=== PATIENT | female | born 1955 | race Caucasian/White ===

== ENCOUNTER → 2019-10-31 09:00 | Outpatient (BNVA) | payer MEDICARE, BC, SELFPAY | PROVIDERS: Family Provider Family Medicine; PCP Family Medicine; Visit Provider Family Medicine | DX: F41.9 Anxiety disorder, unspecified (principal); R30.0 Dysuria; I10 Essential (primary) hypertension; H69.83 Other specified disorders of Eustachian tube, bilateral | CPT/HCPCS: 80053; 80061; 81003; 85025; 87086 ==

== ENCOUNTER → 2019-12-17 13:47 | Outpatient (BNVA) | payer BC, SELFPAY | PROVIDERS: Family Provider Family Medicine; PCP Family Medicine; Visit Provider Family Medicine | DX: E78.5 Hyperlipidemia, unspecified (principal) | CPT/HCPCS: 80053 ==

== ENCOUNTER → 2020-02-28 08:39 | Outpatient (BNVA) | payer BC, SELFPAY | PROVIDERS: Family Provider Family Medicine; PCP Family Medicine; Visit Provider Family Medicine | DX: E78.5 Hyperlipidemia, unspecified (principal); R06.02 Shortness of breath; F41.9 Anxiety disorder, unspecified | CPT/HCPCS: 80053; 80061 ==

== ENCOUNTER → 2020-05-08 14:10 | Outpatient (BNVA) | payer BC, SELFPAY | PROVIDERS: Family Provider Family Medicine; PCP Family Medicine; Visit Provider Family Medicine | DX: Z01.419 Encounter for gynecological examination (general) (routine) without abnormal findings | CPT/HCPCS: 88175 ==

== ENCOUNTER 2020-06-20 09:31 | Outpatient (CLI) | payer BC, SELFPAY ==
--- NOTE | 2020-06-20 09:30 | MM_ITS ---
WS: [id number] BILATERAL SCREENING DIGITAL MAMMOGRAM WITH CAD HISTORY: screening mammogram COMPARISON: 03/23/2018 and 03/13/2015 Bilateral CC and MLO views submitted. Computer aided detection analyzed. Breast composition: There are scattered areas of fibroglandular density. No suspicious masses, microc alcifications or architectural distortion. Benign calcifications in the central RIGHT breast at 12:00 . MM/[place] [id number] IMPRESSION: BI-RADS: 2-Benign FOLLOW UP: 1 Year Follow-up
== END 2020-06-20 09:32 | disposition home or self-care (01) ==
LOC: RADSHAW 09:34
PROVIDERS: PCP Family Medicine; Visit Provider Family Medicine
DX: Z12.31 Encounter for screening mammogram for malignant neoplasm of breast (principal)
CPT/HCPCS: 77067

== ENCOUNTER → 2020-10-13 14:02 | Outpatient (BNVA) | payer MEDICARE, SELFPAY | PROVIDERS: PCP Family Medicine; Visit Provider Family Medicine | DX: I10 Essential (primary) hypertension (principal); E78.5 Hyperlipidemia, unspecified; F41.9 Anxiety disorder, unspecified | CPT/HCPCS: 80053; 80061; 82043; 85025 ==

== ENCOUNTER 2021-01-07 15:23 | Outpatient (CLI) | payer MEDICARE, SELFPAY ==
--- NOTE | 2021-01-07 15:32 | XR_ITS ---
WS: [id number] SHOULDER RIGHT TECHNIQUE: 3 views of the right shoulder CLINICAL INFORMATION: right shoulder pain COMPARISON: None. FINDINGS: Mild degenerative arthritis AC joint and glenohumeral joint. Narrowing of the subacromial space. Rota tor cuff arthropathy. No acute fractures. Partially visualized right lung is normal. XR/XR shoulder RT min 2V* [id number] IMPRESSION: Rotator cuff arthropathy with loss of the subacromial space. No acute fractures .
== END 2021-01-07 15:24 | disposition home or self-care (01) ==
PROVIDERS: PCP Family Medicine; Visit Provider Family Medicine
DX: M25.511 Pain in right shoulder (principal); M12.811 Other specific arthropathies, not elsewhere classified, right shoulder
CPT/HCPCS: 73030

== ENCOUNTER 2021-01-14 08:57 | Outpatient (RCR) | payer MEDICARE, SELFPAY | END 2021-02-06 23:59 | disposition home or self-care (01) | LOC: SPT 08:57 | PROVIDERS: PCP Family Medicine; Referring Provider Family Medicine; Visit Provider Family Medicine | DX: M25.511 Pain in right shoulder (principal); G89.29 Other chronic pain | CPT/HCPCS: 97110; 97161 ==

== ENCOUNTER 2021-02-07 06:00 | Outpatient (RCR) | payer MEDICARE, SELFPAY | END 2021-03-09 23:59 | disposition home or self-care (01) | LOC: SPT 06:00 | PROVIDERS: PCP Family Medicine; Referring Provider Family Medicine; Visit Provider Family Medicine | DX: M25.511 Pain in right shoulder (principal); G89.29 Other chronic pain | CPT/HCPCS: 97110 ==

== ENCOUNTER → 2021-04-14 11:55 | Outpatient (BNVA) | payer MEDICARE, SELFPAY | PROVIDERS: PCP Family Medicine; Visit Provider Family Medicine | DX: I10 Essential (primary) hypertension (principal); F41.9 Anxiety disorder, unspecified; M16.11 Unilateral primary osteoarthritis, right hip; E78.5 Hyperlipidemia, unspecified | CPT/HCPCS: 80053 ==

== ENCOUNTER → 2021-10-13 11:40 | Outpatient (BNVA) | payer MEDICARE, SELFPAY | PROVIDERS: PCP Family Medicine; Visit Provider Family Medicine | DX: I10 Essential (primary) hypertension (principal); E78.5 Hyperlipidemia, unspecified | CPT/HCPCS: 80053; 80061; 82043; 85025 ==

== ENCOUNTER 2021-12-23 08:16 | Outpatient (CLI) | payer MEDICARE, SELFPAY ==
[2021-12-23 08:35] VITALS: BMI 31.6
--- NOTE | 2021-12-23 08:48 | ECG_ITS ---
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 Interpretive Statements NAME OF STUDY: LEXISCAN SESTAMIBI STRESS TEST INDICATION: Dyspnea, PROCEDURE: At the baseline, the EKG revealed normal sinus rhythm with a normal ST Ts. The baseline blood pressure was 148/83 mm Hg with a heart rate of 82 beats/min. Lexiscan was infused over a period of 20 seconds. A total of 0.4 milligrams of Lexiscan was infused. The stress phase was continued for a total of 5 minutes. Heart rate at the end of the stress phase was 101 with a blood pressure 152/82. The EKG at the peak infusion revealed no significant changes. Sestamibi was injected 20 seconds after the Lexiscan infusion. Blood pressure at the end of the recovery phase was 147/81 with a heart rate of 102 per minute. CONCLUSION: 1. No significant EKG changes with the LexiScan infusion 2. No LexiScan induced chest pain or cardiac arrhythmia 3. Normal blood pressure and heart rate response 4. Sestamibi/sestamibi perfusion scan pending; see separate report. Electronically Signed On 12-26-2021 13:21:57 CDT by Megan Duarte M.D. [id number]
--- NOTE | 2021-12-23 08:48 | NMCV_ITS ---
NM keith perf SPECT r/s* [id number] Niya Oviedo Age: 66 Gender: F : 1955 Exam Date: 12/23/2021 08:48 Ordering Phys: Lorena Giron DO Technologist: ANNETTE Rosario Exam Location: [facility] Indications: DYSPNEA STRESS TEST Please see separate stress test report in [facility] for full findings IMAGE PROTOCOL Rest/Stress 1 Lexiscan Day Radiopharmaceutical Dose (mCi) Administration Site Administered by Rest: Tc-99m 10.7 IV ANNETTE Roa Sestamibi Stress:Tc-99m 32.9 IV ANNETTE Roa Sestamibi Rest: 23-Dec-2021 60 Discovery 630 Stress: 23-Dec-2021 30 Discovery 630 0.4mg Lexiscan. Images obtained in supine and prone position. SPECT RESULTS Technical Quality: Excellent Raw Data Analysis: Normal Image Corrections: No attenuation or motion correction applied Summed Stress Score: 9 Summed Rest Score: 5 Summed Difference Score: 4 PERFUSION FINDINGS Small to moderate area of moderate to severely decreased tracer uptake in the mid inferolateral, apical lateral, apical anterior, and LV apex. There was a reversibility in these regions. FUNCTIONAL RESULTS (calculated via Gated SPECT) Stress Image LV EF (%): 78 Stress EDV (mL):80 TID: 1.09 Stress ESV (mL):18 FUNCTIONAL FINDINGS: Segmental wall motion analysis revealing no gross wall motion normalities. IMPRESSIONS 1. Myocardial perfusion imaging revealing small to moderate area of decreased tracer uptake in the inferolateral and apical regions with significant reversibility, suggesting ischemia predominantly in the region of the left circumflex artery with some involvement of the distal RCA and LAD. 2. Normal LV ejection fraction 78%. 3. LV wall motion analysis revealing no gross wall motion abnormalities. 4. Normal LV volume. No similar previous studies are available for comparison Dr Megan Duarte MD [facility] (Electronically Signed) Final Date: 23 December 2021 17:27 S
[2021-12-23] MEDS: regadenoson 0.4 Mg/5 ml Syringe IVP (10:46)
[2021-12-23 10:48] VITALS: BP 147/81; PULSE 97
== END 2021-12-23 08:17 | disposition home or self-care (01) ==
LOC: CDL 08:16
PROVIDERS: PCP Family Medicine; Visit Provider Family Medicine
DX: R06.00 Dyspnea, unspecified (principal)
CPT/HCPCS: 78452; 93017; A9500; J2785

== ENCOUNTER → 2022-02-24 09:37 | Outpatient (BNVA) | payer MEDICARE, SELFPAY | PROVIDERS: PCP Family Medicine; Visit Provider Internal Medicine Cardiovascular Disease | DX: R06.09 Other forms of dyspnea (principal); R94.39 Abnormal result of other cardiovascular function study; I10 Essential (primary) hypertension; E78.5 Hyperlipidemia, unspecified; M16.11 Unilateral primary osteoarthritis, right hip; Z87.891 Personal history of nicotine dependence | CPT/HCPCS: 99205 ==

== ENCOUNTER 2022-03-26 06:51 | Outpatient (CLI) | payer MEDICARE, SELFPAY ==
[2022-03-26 07:36] LABS: Basophils # 0.1 10^3/uL (0.0-0.1); Basophils % 0.9 %; Eosinophils # 0.1 10^3/uL (0.0-0.8); Eosinophils % 0.9 %; Hematocrit 25.4 % (37.0-47.0); Hemoglobin 7.2 g/dL (11.5-15.3); Lymphocytes # 0.9 10^3/uL (0.8-4.8); Lymphocytes % 15.6 %; Mean Corpuscular HGB Conc 28.3 g/dL (30.0-36.0); Mean Corpuscular Hemoglobin 19.5 pg (28.0-34.0); Mean Corpuscular Volume 68.8 fl (81-99); Mean Platelet Volume 9.7 fL (7.4-10.4); Monocytes # 0.8 10^3/uL (0.2-0.9); Monocytes % 14.2 %; Neutrophils % 67.7 %; Nucleated Red Blood Cells % 0.5 %; Platelet Count 433 10^3/cmm (130-400); Red Blood Count 3.69 10^6/uL (4.1-5.3); Red Cell Distribution Width 18.3 % (12.1-15.1); White Blood Count 5.8 10^3/uL (4.0-10.0)
[2022-03-26 07:47] LABS: INR 1.11 (0.83-1.21); Prothrombin Time (Patient) 14.7 Seconds (12.0-15.1)
[2022-03-26 07:55] LABS: Anion Gap 15.8 (5-19); Blood Urea Nitrogen 7 mg/dL (8-23); Calcium 8.6 mg/dL (8.5-10.5); Carbon Dioxide 24 mmol/L (22-29); Chloride 100 mmol/L (98-107); Glomerular Filtration Rate 83.5 mL/min (90-130); Glucose 112 mg/dL (65-115); Osmolality Calculated 281 mOsm/kg (285-295); Potassium 3.8 mmol/L (3.5-5.1); Sodium 136 mmol/L (136-145)
== END 2022-03-26 06:52 | disposition home or self-care (01) ==
LOC: LAB 06:52
PROVIDERS: PCP Family Medicine; Visit Provider Internal Medicine Cardiovascular Disease
DX: E78.5 Hyperlipidemia, unspecified (principal); I10 Essential (primary) hypertension; R06.02 Shortness of breath
CPT/HCPCS: 36415; 80048; 85025; 85610

== ENCOUNTER → 2022-04-07 14:54 | Outpatient (BNVA) | payer MEDICARE, SELFPAY | PROVIDERS: PCP Family Medicine; Referring Provider Family Medicine; Visit Provider Surgery | DX: D64.9 Anemia, unspecified (principal) | CPT/HCPCS: 99203 ==

== ENCOUNTER 2022-04-14 07:03 | Day surgery (SDC) | payer MEDICARE, SELFPAY ==
[2022-04-14 07:36] VITALS: BP 162/102; PULSE 103; RESP 18; TEMP 36.3; O2SAT 99
[2022-04-14] MEDS: sodium chloride 0.9% 1,000 ML 30 ML IV (07:36)
--- NOTE | 2022-04-14 07:51 | W.PM.OPSUD ---
Surgery/Procedure H&P Update DATE OF PROCEDURE: April 14, 2022 DATE H&P PERFORMED: 04/07/22 CHANGES TO PREVIOUS DOCUMENTATION: none PLANNED PROCEDURE: Operation Date: 04/14/22 08:45 Proposed Procedures p EGD and colonoscopy 47544,19898,D64.9,Z12.11(Not Applicable) - DO etta Hendricks Colonoscopy(Not Applicable) - Joseph Ross DO
--- NOTE | 2022-04-14 08:16 | ANES.PREANE2 ---
Pre-Anesthetic Assessment Height/Weight: Height 1.65 m Weight 82.554 kg Temp Pulse Resp BP Pulse Ox 97.3 F L 103 H 18 162/102 99 04/14/22 07:36 04/14/22 07:36 04/14/22 07:36 04/14/22 07:36 04/14/22 07:36 Operation Date: 04/14/22 08:45 Proposed Procedures p EGD and colonoscopy 88327,07002,D64.9,Z12.11(Not Applicable) - DO etta Hendricks Colonoscopy(Not Applicable) - Joseph Ross DO Familial anesthetic complications: none Last intake: Intake Last Liquid Date 04/13/22 Last Liquid Time 23:30 Last Solid Date 04/13/22 Last Solid Time 11:00 Social No alcohol and No tobacco Exam alert, oriented x 3, clear to auscultation bilaterally and regular rate & rhythm Airway Mallampati: Class II Dentition: false Pulmonary Exertional Dyspnea CV/HEM Anemia and Hypertension Anesthetic Plan ASA status: 3 Anesthesia: MAC Risk of > 500 ml blood loss (7ml/kg in children): No Medications/Allergies Home Medications Medication Instructions Recorded Confirmed Last Taken Type aspirin 81 mg tablet,delayed 81 mg PO QDAY 10/31/19 04/14/22 04/13/22 History release sertraline 50 mg tablet (Zoloft) 50 mg PO QDAY #90 tab 10/13/21 04/14/22 04/13/22 Rx isosorbide mononitrate 30 mg 15 mg PO QAM 90 Days #45 tab 11/23/21 04/14/22 04/13/22 Rx tablet,extended release 24 hr atorvastatin 10 mg tablet 10 mg PO DAILY #90 tab 03/03/22 04/14/22 04/13/22 Rx propranolol 80 mg capsule,24 80 mg PO QDAY #90 cap 03/11/22 04/14/22 04/14/22 Rx hr,extended release Allergies Allergy/AdvReac Type Severity Reaction Status Date / Time No Known Allergies Allergy Verified 04/14/22 07:30 Current Medications Generic Name Dose Route Start Last Admin Trade Name Freq PRN Reason Stop Dose Admin Sodium Chloride 1,000 mls @ 30 mls/hr 04/14/22 07:30 04/14/22 07:36 Sodium Chloride 0.9% IV 04/15/22 07:29 30 mls/hr .Q24H [place] Administration PFSH Anesthesia Medical History Anxiety Arrhythmia Benign essential HTN Dyslipidemia Ischemia Surgical History H/O tubal ligation History of colonoscopy 2008 History of tonsillectomy Family History Mother Cardiomegaly Grandfather Myocardial infarction Family/Other Myocardial infarction Diabetes Other CAD (coronary artery disease) Hypertension Social History Smoking and tobacco status: former smoker Alcohol intake: never Data Anesthesia Cardiac Studies: Sestamibi Stress Test (Cardiology) 12/23/21
[2022-04-14 09:02] VITALS: BP 119/68; PULSE 89; RESP 16; TEMP 36.2; O2SAT 97
--- NOTE | 2022-04-14 09:06 | ANE.PACU2 ---
Inpatient post-anesthesia follow up: Airway intact: Yes Vital signs: Temperature 97.1 F Pulse Rate 89 Respiratory Rate 16 Blood Pressure 119/68 Pulse Oximetry 97 Oxygen Delivery Me thod Room Air Oxygen Flow Rate Fraction of Inspir ed Oxygen Hydration adequate: Yes Nausea and vomiting: No Pain level: 1 Mental status: Baseline
[2022-04-14 09:20] VITALS: BP 129/86; PULSE 80; RESP 18; O2SAT 97
== END 2022-04-14 09:33 | disposition home or self-care (01) ==
PROVIDERS: PCP Family Medicine; Visit Provider Surgery
PROC: 0DJ08ZZ Inspection of Upper Intestinal Tract, Via Natural or Artificial Opening Endoscopic (ICD-10-PCS; CPT 43235; principal; 2022-04-14 08:45)
PROC: 0DJD8ZZ Inspection of Lower Intestinal Tract, Via Natural or Artificial Opening Endoscopic (ICD-10-PCS; CPT 45378; 2022-04-14 08:45)
DX: Z12.11 Encounter for screening for malignant neoplasm of colon (principal); D64.9 Anemia, unspecified; K29.50 Unspecified chronic gastritis without bleeding; B96.81 Helicobacter pylori [H. pylori] as the cause of diseases classified elsewhere; I10 Essential (primary) hypertension; Z79.82 Long term (current) use of aspirin; F41.9 Anxiety disorder, unspecified; E78.5 Hyperlipidemia, unspecified; Z87.891 Personal history of nicotine dependence
CPT/HCPCS: 43239; 45378; 88305; 88342; J2704; J7030

== ENCOUNTER → 2022-04-20 11:31 | Outpatient (BNVA) | payer MEDICARE, SELFPAY | PROVIDERS: PCP Family Medicine; Visit Provider Family Medicine | DX: D50.9 Iron deficiency anemia, unspecified (principal); K29.70 Gastritis, unspecified, without bleeding; I10 Essential (primary) hypertension; E78.5 Hyperlipidemia, unspecified; F41.9 Anxiety disorder, unspecified | CPT/HCPCS: 82728; 83550; 85025 ==

== ENCOUNTER → 2022-04-28 09:07 | Day surgery (SDC) | payer MEDICARE, SELFPAY ==
[2022-04-28 09:22] VITALS: BP 155/92; PULSE 71; RESP 18; TEMP 37.1; O2SAT 98
[2022-04-28] MEDS: ferric carboxy (IVPB) 750 MG in sodium chloride 0.9% (100 ml) 100 ML 345 MG IV (09:31)
== END ==
PROVIDERS: PCP Family Medicine; Visit Provider Family Medicine
DX: D50.8 Other iron deficiency anemias (principal)
CPT/HCPCS: 96365; J1439

== ENCOUNTER → 2022-04-29 14:06 | Outpatient (BNVA) | payer MEDICARE, SELFPAY | PROVIDERS: PCP Family Medicine; Visit Provider Surgery | DX: Z09 Encounter for follow-up examination after completed treatment for conditions other than malignant neoplasm (principal); K29.70 Gastritis, unspecified, without bleeding; D64.9 Anemia, unspecified | CPT/HCPCS: 99213 ==

== ENCOUNTER → 2022-05-05 08:54 | Day surgery (SDC) | payer MEDICARE, SELFPAY ==
[2022-05-05 09:03] VITALS: BMI 30.7
[2022-05-05 09:06] VITALS: BP 150/80; PULSE 80; RESP 16; TEMP 36.2; O2SAT 98
[2022-05-05] MEDS: ferric carboxy (IVPB) 750 MG in sodium chloride 0.9% (100 ml) 100 ML 345 MG IV (09:36)
== END ==
PROVIDERS: PCP Family Medicine; Visit Provider Family Medicine
DX: D50.8 Other iron deficiency anemias (principal)
CPT/HCPCS: 96365; J1439

== ENCOUNTER → 2022-05-22 13:10 | Outpatient (BNVA) | payer MEDICARE, SELFPAY | PROVIDERS: PCP Family Medicine; Visit Provider Nurse Practitioner Family | DX: R07.0 Pain in throat (principal) | CPT/HCPCS: 87426 ==

== ENCOUNTER 2022-05-25 05:55 | Outpatient (CLI) | payer MEDICARE, SELFPAY ==
[2022-05-25] VITALS (26 sets, daily range): BP systolic 115–174; BP diastolic 73–111; PULSE 79–98; RESP 14–37; TEMP 37; O2SAT 95–98; BMI 30.9
--- NOTE | 2022-05-25 06:00 | XACV_ITS ---
Exam Room: [facility] Ht: 165 cm Wt: 84 kg BSA: 2.00 m2 Gender: Female : 1955 Any Known Allergies: No known allergies Exam Priority: Routine Procedure(s): Procedure Description: Diagnostic procedure Procedure Description: Left Heart Catheterization Procedure Description: Coronary Angiography Procedure Description: Pressure Wire Diagnostic Cath Status: Elective Diagnostic Findings * INDICATION: 66 year old female here for evaluation and treatment of exertional dyspnea. She has PMHx of irregular heart beat, dyslipidemia and anxiety and OA. Older brother in his 60's with stents to his heart. She is a former smoker and has 40 pack year history of smoking and quit in 2014. EKG showed sinus rhythm, normal axis and normal EKG. Myocardial perfusion imaging revealing small to moderate area of decreased tracer uptake in the inferolateral and apical regions with significant reversibility, suggesting ischemia predominantly in the region of the left circumflex artery with some involvement of the distal RCA and LAD. * Left Main has no significant disease. * Left Anterior Descending has mild luminal irregularities. * Right Coronary Artery has no significant disease. * Proximal Circumflex: moderate 50% stenosis, NEW: 3 flow. * Coronary angiography shows right dominance. Interventional Findings * Procedure detail: We engaged left main artery with XB 3.0 guide catheter. IV heparin was administered to maintain ACT above 250 S. After normalization, pressure wire was advanced into distal left circumflex artery. IFR value of 0.98 was obtained that was nonischemic. iFR wire was removed and final angiogram showed excellent flow. Guide catheter was removed and patient left the Line Walker in a stable condition. Conclusions 1. Moderate left circumflex artery stenosis. 2. IFR was nonischemic.. Recommendations * Aggressive risk factor modification. * Outpatient cardiology follow-up in 4 weeks. Interventional RX Recommendation: medical therapy and/or counseling Diagnostic RX Recommendation: medical therapy and/or counseling Anticoagulation: Heparin Pressures Phase:Rest AO : 144 / 80 ( 109 ) @ 8:48:00 AM 116 / 84 ( 100 ) @ 8:49:00 AM 120 / 86 ( 102 ) @ 8:52:00 AM 167 / 84 ( 124 ) @ 8:58:00 AM 168 / 75 ( 122 ) @ 8:58:00 AM 153 / 80 ( 115 ) @ 9:13:00 AM LV : 166 / -24 / 19 @ 8:58:00 AM 166 / -16 / 23 @ 8:58:00 AM Valves Phase:DefaultPhase AV : 0.0 @ 8:27:48 AM 0.0 @ 8:27:48 AM AV Mean Gradient: 0.0 @ 8:27:48 AM 0.0 @ 8:27:48 AM Clinical Evaluation EBL: 5mL-10mL Procedural Details Procedure Consent Obtained. Pre-Procedure Time Out. Identified patient by full name and date of as verbalized by the patient/guarantor. Does the consent match the physician's order: Yes. Accurate & Complete Informed Consent: Yes. Inpatient/Outpatient History & Physical on Chart: Yes. If H&P is completed, is and addenduem needed: No; If yes, is the addendum complete: N/A. Visualize and Verify Site with Patient/Guarantor: N/A. Relevant Radiology Images available: Yes. Pre-op teaching completed and patient verbalized understanding. The risks, benefits, and alternatives of sedation and/or procedure were discussed by physician. The patient agrees to continue. Procedure started. Current Diagnosis : Chest Pain. HA Clinical Fraility Score: 3: Managing Well. Line Walker Indications: Suspected CAD. Chest Pain Symptom Assessment: Atypical Angina. Correct patient, site and procedure confirmed by cath team. Current diagnosis: Chest Pain. PERRLA. Strong, equal hand geology instructor bilaterally. Lungs clear x 5 lobes. IV Site on Arrival: 20 gauge in the left anticubital. IV Fluids: 0.9% NaCl at KVO. 0 mL infused prior to pathology laboratory director. Pre Procedural Pulses: bilateral dorsalis pedis was 3+. Pre Procedural Pulses: bilateral posterior tibial was 3+. Pre Procedural Pulses: bilateral radial was 3+. Oxygen started at 2liters/min via nasal canula. right groin was prepped with chloroprep then draped in the usual sterile fashion. right radial was prepped with chloroprep then draped in the usual sterile fashion. Physician notified. Baseline sample Acquired. HR: 91 BPM. Physician arrived. Physician scrubbed in. Immediate Pre-Procedure Time Out. Correct Patient: Yes; Correct Procedure: Yes; Correct Site: Yes; Correct Patient Position: Yes; Correct Supplies: Yes; Dried Flammable Prep: Yes; Blood Products Available: N/A;. Lidocaine 1% infiltrated to the right radial. Arterial access obtained. A 5 kyrgyz TIG catheter in over wire. Multiple views taken of left coronary artery. Catheter redirected to the RCA. Multiple views taken of right coronary artery. EDP Sample taken: LV 166/-25,19; HR: 100 BPM; SpO2: 100%. Pullback taken: LV 166/-17,23; AO 167/84(124); Mean: 0mmHg, Peak to Peak: 0mmHg, SEP: 9sec/min; HR: 106 BPM; SpO2: 100%. Catheter removed over the standard wire. Physician scrubbed out. Dr. Luz called to review films. Dr. Luz arrived. Dr. Luz scrubbed in to perform intervention. 6 kyrgyz XB 3 guide catheter was inserted over the wire. FFR guidewire was advanced through the guide catheter to lesion in the prox Circ. IFR Results: 0.98. Wire out. Guide catheter out. A TR Band was successful obtaining hemostatsis at the Right Radial artery insertion site. Post Procedure: Pulses reassessed and unchanged. PERRLA. Strong, equal hand geology instructor bilaterally. No VTE prophylaxis required. Medication's Wasted: Nitro = 49.8 mg. Total IV fluids: 67 mL. Medication's Wasted: Lidocaine 1% = 1 mL. Complications: None. Estimated blood loss: 5mL-10mL. Responsiveness - Normal response to verbal stimuli; alert and oriented, PERRLA. Airway - Unaffected, no intervention required; spontaneous ventilation. Circulation: W/N/L, pulses unchanged. Nausea/Vomiting: No. Procedure completed. Patient transferred by wheelchair to 1st floor. Vital chart was stopped. Access Site Site: Right Radial artery Sheath Size: 6 Fr Hemostasis Method: TR Band Hemostasis Success: Successful Procedure Medications Start: 7:35 AM Stop: 7:35 AM Medication: Versed Amount: 1 mg Route: I.V. Start: 7:35 AM Stop: 7:35 AM Medication: Fentanyl Amount: 50 mcg Route: I.V. Start: 7:40 AM Stop: 7:40 AM Medication: Versed Amount: 1 mg Route: I.V. Start: 7:44 AM Stop: 7:44 AM Medication: Nitrogylcerin Amount: 200 mcg Route: I.A. Start: 7:45 AM Stop: 7:45 AM Medication: Heparin Amount: 5000 units Route: I.V. Start: 7:57 AM Stop: 7:57 AM Medication: Fentanyl Amount: 50 mcg Route: I.V. Start: 8:11 AM Stop: 8:11 AM Medication: Heparin Amount: 2000 units Route: I.V. Start: 8:11 AM Stop: 8:11 AM Medication: Versed Amount: 1 mg Route: I.V. I, the attending physician, have reviewed and verified all procedure medications. Yes, all medications given per verbal order History/Risk Factors Hypertension: Yes Dyslipidemia: Yes Peripheral Arterial Disease (PAD): No Myocardial Infarction (TX): No Obesity: No Renal Disease: No Tobacco Use: Former Prior Interventions PCI: No CABG: No Valve Surgery: No Report Signatures Interventional Workflow Finalized by Ernie Luz MD on 06/07/2022 11:35 AM Diagnostic Workflow Finalized by Ernie Luz MD on 06/07/2022 11:35 AM
[2022-05-25] MEDS: diphenhydrAMINE 50 mg Capsule PO (06:40)
[2022-05-25 06:47] LABS: Basophils # 0.1 10^3/uL (0.0-0.1); Basophils % 1.2 %; Eosinophils # 0.3 10^3/uL (0.0-0.8); Eosinophils % 3.1 %; Hematocrit 40.9 % (37.0-47.0); Hemoglobin 12.3 g/dL (11.5-15.3); Lymphocytes % 20.6 %; Mean Corpuscular HGB Conc 30.1 g/dL (30.0-36.0); Mean Corpuscular Hemoglobin 24.5 pg (28.0-34.0); Mean Corpuscular Volume 81.5 fl (81-99); Mean Platelet Volume 9.6 fL (7.4-10.4); Monocytes # 0.8 10^3/uL (0.2-0.9); Monocytes % 8.3 %; Neutrophils # 6.34 10^3/uL (1.8-7.7); Neutrophils % 66.5 %; Nucleated Red Blood Cells % 0 %; Platelet Count 330 10^3/cmm (130-400); Red Blood Count 5.02 10^6/uL (4.1-5.3); White Blood Count 9.5 10^3/uL (4.0-10.0)
[2022-05-25 06:55] LABS: Anion Gap 16.6 (5-19); Blood Urea Nitrogen 7 mg/dL (8-23); Calcium 9.1 mg/dL (8.5-10.5); Carbon Dioxide 25 mmol/L (22-29); Chloride 102 mmol/L (98-107); Glomerular Filtration Rate 99.7 mL/min (90-130); Glucose 120 mg/dL (65-115); Osmolality Calculated 289 mOsm/kg (285-295); Potassium 3.6 mmol/L (3.5-5.1); Sodium 140 mmol/L (136-145)
--- NOTE | 2022-05-25 07:24 | W.PM.OPSFHP ---
Same Day Surgery H&P Indication for Procedure/HPI DATE OF PROCEDURE: May 25, 2022 CHIEF COMPLAINT/INDICATIONFOR SURGICAL PROCEDURE: Abnormal stress test PREOP DIAGNOSIS: Abnormal stress test PLANNED PROCEDURE: Operation Date: 05/25/22 07:00 Proposed Procedures p [facility] W/-W/O 10509,R06.02,R94.39(Not Applicable) - Zarina Romero MD 66 year old female here for evaluation and treatment of exertional dyspnea. She has PMHx of irregular heart beat, dyslipidemia and anxiety and OA. Older brother in his 60's with stents to his heart. She is a former smoker and has 40KY history of smoking and quit in 2013. EKG showed sinus rhythm, normal axis and normal EKG. Myocardial perfusion imaging revealing small to moderate area of decreased ?tracer uptake in the inferolateral and apical regions with significant reversibility, suggesting ischemia predominantly in the region of the left?circumflex artery with some involvement of the distal RCA and LAD.? Medications/Allergies* Home Medications Medication Instructions Recorded Confirmed Type aspirin 81 mg tablet,delayed 81 mg PO QDAY 10/31/19 05/24/22 History release Allergies/Adverse Reactions Allergy/AdvReac Type Severity Reaction Status Date / Time No Known Allergies Allergy Verified 05/24/22 10:12 Current Medications: Generic Name Dose Route Start Last Admin Trade Name Freq PRN Reason Stop Dose Admin Sodium Chloride 1,000 mls @ 50 mls/hr 05/25/22 06:00 05/25/22 06:53 Sodium Chloride 0.9% IV 05/26/22 01:59 Not Given .Q20H ONE Pertinent History/Comorbid Conditions* Medical History (Updated 05/22/22 @ 13:21 by Jo Mendoza NP) Anxiety Arrhythmia Benign essential HTN Dyslipidemia Gastritis Ischemia Surgical History (Updated 04/07/22 @ 16:46 by Joseph Ross DO) H/O tubal ligation History of colonoscopy 2009 History of tonsillectomy Family History (Updated 02/24/22 @ 10:04 by Jen Ferrer RN) Diabetes Family/Other CAD (coronary artery disease) Cardiomegaly Mother Myocardial infarction Grandfather Family/Other Hypertension Social History Smoking and tobacco status: former smoker Alcohol intake: never Pertinent Exam Findings alert, oriented x 3, clear to auscultation bilaterally, regular rate & rhythm and procedure specific exam findings (ASA 3. Airway 2) Conscious Sedation Assessment PATIENT ASSESSED PRIOR TO SEDATION, WITH NO CHANGE NOTED: Yes AIRWAY EVAL/ANESTHESIA PLAN: normal airway, ASA III, Monitored Anesthesia, Local Anesthesia, Risks, benefits & alternatives of sedation and/or procedure discussed and Patient agrees to continue as planned Recommendations Surgery/Procedure today Coding Level of Care Code Acute Claims Investigator for Raiza Whitney
--- NOTE | 2022-05-25 08:55 | PC.NURSE ---
received from cardiac slab grinder at 0835 into room 112-2,via w/c.report received.pt is alert and awake and oriented x 4.denies pain at present.sr on monitor.right radial tr band is on and inflated.right hand is warm to touch and with brisk capillary refill.palpable radial pulse noted distal to tr band.no hematoma noted.oriented to room environment.pt instructed in activity restrictions s/p radial artery procedure..and instructed to notify staff for any bleeding,pain,numbness,sob..or for any concerns at all.pt verb understanding of instructions.
[2022-05-25 09:12] LABS: NT Pro B Type Natriuretic Pept 980 pg/mL (0-125)
--- NOTE | 2022-05-25 13:33 | PC.NURSE ---
TR band removed at 1320 without bleeding. 2x2 and tegaderm applied over puncture site. IV removed intact and with no bleeding. Blood pressure at discharge was 163/85. Patient left via wheelchair at 1334. Family member with patient to drive her home.
== END 2022-05-25 13:34 | disposition home or self-care (01) ==
LOC: CCL 05:59 → CSU 07:22
PROVIDERS: Internal Medicine; PCP Family Medicine; Visit Provider Internal Medicine Cardiovascular Disease
DX: I25.10 Atherosclerotic heart disease of native coronary artery without angina pectoris (principal); R94.39 Abnormal result of other cardiovascular function study; E78.5 Hyperlipidemia, unspecified; F41.9 Anxiety disorder, unspecified; M19.90 Unspecified osteoarthritis, unspecified site; I10 Essential (primary) hypertension; Z82.49 Family history of ischemic heart disease and other diseases of the circulatory system; Z87.891 Personal history of nicotine dependence
CPT/HCPCS: 36415; 80048; 83880; 85025; 93452; 93458; 93571; 96360; 99152; 99153; C1769; C1887; C1894; G0378; J1644; J2250; J3010; J3490; J7030; Q0163; Q9967

== ENCOUNTER → 2022-06-03 10:14 | Outpatient (BNVA) | payer MEDICARE, SELFPAY | PROVIDERS: PCP Family Medicine; Visit Provider Nurse Practitioner Family | DX: I10 Essential (primary) hypertension (principal); Z87.891 Personal history of nicotine dependence | CPT/HCPCS: 36415; 80048; 99213; 99214 ==

== ENCOUNTER → 2022-07-20 11:35 | Outpatient (BNVA) | payer MEDICARE, SELFPAY | PROVIDERS: PCP Family Medicine; Visit Provider Family Medicine | DX: D50.0 Iron deficiency anemia secondary to blood loss (chronic) (principal); D50.9 Iron deficiency anemia, unspecified | CPT/HCPCS: 82728; 83550; 85025 ==

== ENCOUNTER → 2022-08-16 13:59 | Outpatient (BNVA) | payer MEDICARE, SELFPAY | PROVIDERS: PCP Family Medicine; Visit Provider Internal Medicine Cardiovascular Disease | DX: R06.00 Dyspnea, unspecified (principal); R94.39 Abnormal result of other cardiovascular function study; I10 Essential (primary) hypertension; E78.5 Hyperlipidemia, unspecified; Z87.891 Personal history of nicotine dependence | CPT/HCPCS: 99214 ==

== ENCOUNTER → 2023-01-18 10:45 | Outpatient (BNVA) | payer MEDICARE, SELFPAY | PROVIDERS: PCP Family Medicine; Visit Provider Family Medicine | DX: E78.5 Hyperlipidemia, unspecified (principal) | CPT/HCPCS: 80053; 80061 ==

== ENCOUNTER 2023-02-02 09:04 | Outpatient (CLI) | payer MEDICARE, SELFPAY ==
--- NOTE | 2023-02-02 09:20 | MM_ITS ---
WS: [id number] VIEWS: MLO and CC views both breasts. 3D digital tomosynthesis is also included in this exam. Comparison made with prior exam of 01/17/2013, 03/13/2015, 03/23/2018, 06/20/2020,. Findings: There was no sign of mass, architectural distortion or suspicious calcification in either breast. Sc attered fibroglandular densities MM/[place] [id number] Impression: BI-RADS: 2-Benign FOLLOW-UP: 1 Year Follow-up This mammogram was also analyzed by the Computer Aided Detection System R2 Imag e Automotive Sales Associate. screening mammogram
== END 2023-02-02 09:05 | disposition home or self-care (01) ==
LOC: RAD 09:08
PROVIDERS: PCP Family Medicine; Visit Provider Family Medicine
DX: Z12.31 Encounter for screening mammogram for malignant neoplasm of breast (principal)
CPT/HCPCS: 77063; 77067

== ENCOUNTER 2023-07-13 09:53 | Emergency (ER) | payer MEDICARE, SELFPAY ==
[2023-07-13 10:22] VITALS: BP 165/104; PULSE 78; RESP 18; TEMP 36.6; O2SAT 96
--- NOTE | 2023-07-13 10:36 | W.ED.FEMALGU ---
HPI - Female Genitourinary General: Chief complaint: Urogenital-Female Stated complaint: urinating blood, painful urination Time Seen by Provider: 07/13/23 10:32 History of Present Illness: 68-year-old female presents emergency department with a large amount of blood in her urine that she noticed after she went to the bathroom this morning. She states that she did have some increased urinary frequency and dysuria that started last night. She states that she does not have any pain and has not had any known injury or trauma. She states she did have a single episode of hematuria many years ago but it resolved on its own and she has not been treated for history of kidney disease or kidney stones. She states that some number years ago she was treated for anemia and had to receive iron infusions at that time. She states she is a previous cigarette smoker but quit approximately 9 years ago. She denies nausea, vomiting fevers chills or night sweats. She denies back pain. She states she does have history of hypertension high cholesterol and acid reflux. She states she did have a colonoscopy and an EGD done approximately 2 years ago and all came back negative. Review of Systems General: Reports: 10 or more systems reviewed and unremarkable except in HPI and below : Reports: urinary frequency, urinary urgency and hematuria PFSH ED PFSH: Medical History Anxiety Arrhythmia Benign essential HTN Dyslipidemia Gastritis Ischemia Surgical History H/O tubal ligation History of colonoscopy 2009 History of tonsillectomy Family History Mother Cardiomegaly Grandfather Myocardial infarction Family/Other Myocardial infarction Diabetes Other CAD (coronary artery disease) Hypertension Social History Smoking and tobacco status: former smoker Alcohol intake: never Physical Exam Const: COMMON NORMALS: no acute distress, patient oriented x3, healthy appearing, alert and well nourished HENMT: COMMON NORMALS: normocephalic, atraumatic, hearing grossly normal bilaterally, Normal nasal mucous membranes and turbinates present and moist oral mucous membranes HEAD & SCALP: normocephalic and atraumatic NOSE: Normal nasal mucous membranes and turbinates present Eye: COMMON NORMALS: Equal, round and reactive pupils present and EOMs intact bilaterally PUPIL: Yes Equal, round and reactive pupils present Neck/C-Spine: COMMON NORMALS: full ROM, no lymphadenopathy, supple and no meningeal signs Chest: COMMONS NORMALS: normal inspection of the chest and normal palpation of entire chest wall Resp: COMMON NORMALS: normal respiratory effort and clear to auscultation bilaterally AUSCULTATION: clear to auscultation bilaterally Cardio: COMMON NORMALS: regular rate, regular rhythm, S1 normal heart sound present and S2 normal heart sound present RATE: regular rate RHYTHM: regular rhythm HEART SOUNDS: S1 normal heart sound present and S2 normal heart sound present GI: COMMON NORMALS: Normal to inspection, nondistended, normoactive bowel sounds present, Soft to palpation and non-tender PALPATION: Yes Soft to palpation : COMMON NORMALS: Yes no CVA tenderness BLADDER/KIDNEY EXAM: Yes no CVA tenderness Back/Pelvis: COMMON NORMALS: no CVA tenderness, thoracic and lumbar spine normal to inspection, no thoracic nor lumbar tenderness and thoraco-lumbar ROM normal Extremity: COMMON NORMALS: normal to inspection, full ROM and capillary refill normal Neuro: COMMON NORMALS: patient oriented x3, moves all extremities, no focal motor deficits and no sensory deficits noted SENSORIUM/ORIENTATION: Yes alert MENINGEAL SIGNS: Yes no meningeal signs Psych: COMMON NORMALS: mental status grossly normal, Normal thought process present and cooperative THOUGHT PROCESS: Normal thought process present Skin: COMMON NORMALS: no rashes or lesions noted GENERAL SKIN EXAM: no rashes or lesions noted Course Vital Signs: Vital signs: Vital Signs Temperature 97.8 F 07/13/23 10:22 Pulse Rate 78 07/13/23 13:26 Respiratory Rate 16 07/13/23 13:26 Blood Pressure 126/77 07/13/23 13:26 Pulse Oximetry 98 07/13/23 13:26 Oxygen Delivery Me thod Room Air 07/13/23 10:22 MDM - Female Medical Decision Making Physical exam completed and documented given the patient's presentation with gross hematuria we will obtain a urinalysis as well as a CBC and CMP, PT PTT INR for additional evaluation given her history of anemia and her history of past tobacco use. We will also obtain a CT scan of the abdomen pelvis with IV contrast and potentially ultrasound of the kidneys for additional evaluation. I discussed possible admission to the hospital given her laboratory and radiographic findings and she is in agreement with this, if admission is needed. Differential Diagnosis Likely calculus of kidney (, UTI, renal cell carcinoma, transitional cell carcinoma) Medical Records I reviewed the patient's medical records. Lab Data I reviewed the patient's lab results. 07/13/23 11:00 07/13/23 11:00 Laboratory Results WBC 11.29 10^3/uL (3.29-11.43) 07/13/23 11:00 RBC 5.00 10^6/uL (3.85-5.65) 07/13/23 11:00 Hgb 14.60 g/dL (11.27-16.99) 07/13/23 11:00 Hct 44.5 % (36-47) 07/13/23 11:00 MCV 89.0 fl (85-98) 07/13/23 11:00 MCH 29.2 pg (27-33) 07/13/23 11:00 MCHC 32.8 g/dL (30-55) 07/13/23 11:00 RDW 13.4 % (12.1-15.1) 07/13/23 11:00 Plt Count 354 10^3/cmm (157-399) 07/13/23 11:00 MPV 9.6 fL (7.4-10.4) 07/13/23 11:00 Neut % (Auto) 76.7 % 07/13/23 11:00 Lymph % (Auto) 13.9 % 07/13/23 11:00 Irion % (Auto) 6.6 % 07/13/23 11:00 Eos % (Auto) 1.9 % 07/13/23 11:00 Baso % (Auto) 0.5 % 07/13/23 11:00 Neut # (Auto) 8.65 10^3/uL (1.8-7.7) H 07/13/23 11:00 Lymph # (Auto) 1.6 10^3/uL (0.8-4.8) 07/13/23 11:00 Irion # (Auto) 0.8 10^3/uL (0.2-0.9) 07/13/23 11:00 Eos # (Auto) 0.2 10^3/uL (0.0-0.8) 07/13/23 11:00 Baso # (Auto) 0.1 10^3/uL (0.0-0.1) 07/13/23 11:00 Nucleated RBC % (auto) 0 % 07/13/23 11:00 Nucleated RBCs # 0.0 /100WBC 07/13/23 11:00 PT 13.10 SECONDS (12.1-14.9) 07/13/23 11:00 INR 0.96 (0.8-1.2) 07/13/23 11:00 APTT 26.5 SECONDS (23.9-36.7) 07/13/23 11:00 Sodium 137 mmol/L (136-145) 07/13/23 11:00 Potassium 4.6 mmol/L (3.5-5.1) 07/13/23 11:00 Chloride 100 mmol/L (98-107) 07/13/23 11:00 Carbon Dioxide 28 mmol/L (22-29) 07/13/23 11:00 Anion Gap 13.6 (5-19) 07/13/23 11:00 BUN 10 mg/dL (8-23) 07/13/23 11:00 Creatinine 0.7 mg/dL (0.5-0.9) 07/13/23 11:00 GFR Calculation 83.0 mL/min (90-130) L 07/13/23 11:00 Glucose 121 mg/dL (65-115) H 07/13/23 11:00 Calculated Osmolality 284 mOsm/kg (285-295) L 07/13/23 11:00 Calcium 9.5 mg/dL (8.5-10.5) 07/13/23 11:00 Magnesium 2.0 mg/dL (1.7-2.3) 07/13/23 11:00 Total Bilirubin 1.3 mg/dL (0.15-1.2) H 07/13/23 11:00 AST 15 U/L (0-32) 07/13/23 11:00 ALT 11 U/L (0-33) 07/13/23 11:00 Alkaline Phosphatase 120 U/L (35-105) H 07/13/23 11:00 Total Protein 8.0 g/dL (6.6-8.7) 07/13/23 11:00 Albumin 4.4 g/dL (3.5-5.2) 07/13/23 11:00 Globulin 3.6 g/dL (1.3-4.6) 07/13/23 11:00 Urine Color Red (Yellow) A 07/13/23 10:38 Urine Appearance Cloudy (CLEAR) A 07/13/23 10:38 Urine pH 7 (5-7) 07/13/23 10:38 Ur Specific Sully 1.010 (1.005-1.030) 07/13/23 10:38 Urine Protein 3+ (Negative) H 07/13/23 10:38 Urine Glucose (UA) Norm (Normal) 07/13/23 10:38 Urine Ketones 1+ (Negative) H 07/13/23 10:38 Urine Blood 3+ (Negative) H 07/13/23 10:38 Urine Nitrate Negative (Negative) 07/13/23 10:38 Urine Bilirubin Neg (Negative) 07/13/23 10:38 Urine Urobilinogen Norm mg/dL (Negative) 07/13/23 10:38 Ur Leukocyte Esterase 1+ (Negative) H 07/13/23 10:38 Urine RBC Too numerous to cnt /hpf (0-2) H 07/13/23 10:38 Urine WBC 10-15 /hpf (0-5) H 07/13/23 10:38 Ur Squamous Epith Cells 5-10 /hpf (0-5) H 07/13/23 10:38 Amorphous Sediment Not Reportable 07/13/23 10:38 Urine Bacteria Trace /hpf (NONE) 07/13/23 10:38 Urine Mucus Trace /hpf 07/13/23 10:38 All radiology interpretation(s) finalized by discharge ED provider radiology interpretation(s): IMPRESSION: 1.? Polypoid soft tissue thickening along the dorsal bladder nonspecific but suspicious for TCC. Recommend further evaluation with cystoscopy. 2.? No hydronephrosis in either kidney. 3.? Mild endometrial and cervical thickening prominent for a patient this age. Recommend further evaluation with pelvic ultrasound. 4.? Cholelithiasis. No gallbladder wall thickening or pericholecystic fluid. 5.? Moderate to large esophageal hiatal hernia. No evidence of obstruction. Discharge Plan Discharge Patient Disposition: Home Clinical Impression: Hematuria, Acute UTI Condition: Stable Prescriptions: New Macrobid 100 mg capsule 100 mg PO BID 7 Days Qty: 14 0RF Rx Instructions: must administer with a meal/food No Action aspirin 81 mg tablet,delayed release (DR/EC) 81 mg PO BEDTIME Hold Instructions: Resume on 04/17/22. isosorbide mononitrate 30 mg tablet extended release 24 hr 15 mg PO QAM 90 Days Qty: 45 1RF cetirizine 10 mg tablet 10 mg PO QAM atorvastatin 10 mg tablet 10 mg PO QAM propranolol 40 mg tablet 40 mg PO QPM pantoprazole 40 mg tablet,delayed release (DR/EC) 40 mg PO QAM propranolol 80 mg capsule,extended release 24hr 80 mg PO QAM sertraline 50 mg tablet 50 mg PO QAM Discharge Orders: Discharge ED (Routine); Ordered 07/13/23 Ordered By: Gianni Vallejo Referrals: Lorena Giron DO [Primary Care Provider] - Discharge Diet: Advance as tolerated Discharge Activity: Resume usual activity Activity Restrictions/Additional Instructions: It is very important to call for follow-up of the blood in your urine. It is important to call a urologist to make an appointment for additional evaluation and possible cystoscopy. You may choose to call your primary care provider to receive a recommendation for a urologist that is available to you. It is extremely important to take all of your antibiotics as prescribed. Coding Level of Care Code ED Patent Prosecution Attorney for Raiza Whitney
--- NOTE | 2023-07-13 10:46 | CT_ITS ---
WS: [id number] CT ABDOMEN PELVIS TECHNIQUE: Contrast-enhanced CT of the abdomen and pelvis with coronal and sagittal reformatted image s. CLINICAL INFORMATION: Gross Hematuria COMPARISON: None. DLP: 24.[address] scans at [facility] use at least one of these dose optimization techniques: automated e xposure control; mA and/or kV adjustment per patient size (includes targeted exams where dose is matc hed to clinical indication); or iterative reconstruction. FINDINGS: IV infiltrated with initial injection. Additional contrast injection was performed. Mild diffuse fatty filtration of the liver. Cholelithiasis. Large esophageal hiatal hernia with parti al intrathoracic stomach. No evidence of obstruction. Lung bases are well aerated. No hydronephrosis in either kidney. Normal renal parenchymal enhancement. Few tiny renal cysts. Adrenal glands are norm al. Diffuse bladder wall thickening. Polypoid lesion along the dorsal dependent bladder measuring 7 mm wi th plaque-like soft tissue thickening along the dorsal dependent bladder wall suspicious for TCC. Rec ommend further evaluation with cystoscopy. Contrast visualized in the distal ureters with normal emptying. Normal pancreatic parenchymal enhance ment. Normal spleen. Normal caliber abdominal aorta. Celiac and SMA are patent. Normal sigmoid colon. No abdominal or pelvic lymphadenopathy. No pelvic or inguinal lymphadenopathy. 6 mm endometrial thickening prominent for a patient of this age. This be followed up with pelvic ultr asound. Mild prominence of the cervix. IMPRESSION: 1. Polypoid soft tissue thickening along the dorsal bladder nonspecific but suspicious for TCC. Mamadou mmend further evaluation with cystoscopy. 2. No hydronephrosis in either kidney. 3. Mild endometrial and cervical thickening prominent for a patient this age. Recommend further eval uation with pelvic ultrasound. 4. Cholelithiasis. No gallbladder wall thickening or pericholecystic fluid. 5. Moderate to large esophageal hiatal hernia. No evidence of obstruction. Notified Gianni Vallejo MD at 07/13/2023 1:47 PM.
[2023-07-13 10:58] LABS: Protein Urine 3+ (Negative); Urine Appearance Cloudy (CLEAR); Urine Color Red (Yellow); pH Urine 7 (5-7)
[2023-07-13 11:00] LABS: Bilirubin Urine Neg (Negative); Blood Urine 3+ (Negative); Glucose Urine UA Norm (Normal); Ketones Urine 1+ (Negative); Leukocyte Esterase Urine 1+ (Negative); Nitrate Urine Negative (Negative); Urobilinogen Urine Norm (Negative)
[2023-07-13 11:06] LABS: RBC Urine TOO NUMEROUS TO CNT /hpf (0-2)
[2023-07-13 11:07] LABS: Bacteria Urine TRACE /hpf; Mucus Urine TRACE /hpf
[2023-07-13 11:08] LABS: Basophils # 0.1 10^3/uL (0.0-0.1); Basophils % 0.5 %; Eosinophils # 0.2 10^3/uL (0.0-0.8); Eosinophils % 1.9 %; Hematocrit 44.5 % (36-47); Lymphocytes # 1.6 10^3/uL (0.8-4.8); Lymphocytes % 13.9 %; Mean Corpuscular HGB Conc 32.8 g/dL (30-55); Mean Corpuscular Hemoglobin 29.2 pg (27-33); Mean Platelet Volume 9.6 fL (7.4-10.4); Monocytes # 0.8 10^3/uL (0.2-0.9); Monocytes % 6.6 %; Neutrophils # 8.65 10^3/uL (1.8-7.7); Neutrophils % 76.7 %; Nucleated Red Blood Cells % 0 %; Platelet Count 354 10^3/cmm (157-399); Red Cell Distribution Width 13.4 % (12.1-15.1); White Blood Count 11.29 10^3/uL (3.29-11.43)
[2023-07-13 11:08] LABS: Add Urine Culture? Yes
--- NOTE | 2023-07-13 11:15 | PC.PHAR ---
pt states she takes care of her own medications-pt states she didnt take meds today and unsure if took some of them yesterday
[2023-07-13 11:19] LABS: INR 0.96 (0.8-1.2)
[2023-07-13 11:20] LABS: Partial Thromboplastin Time 26.5 SECONDS (23.9-36.7)
[2023-07-13 11:25] LABS: Alanine Aminotransferase 11 U/L (0-33); Albumin Level 4.4 g/dL (3.5-5.2); Alkaline Phosphatase 120 U/L (35-105); Anion Gap 13.6 (5-19); Aspartate Amino Transferase 15 U/L (0-32); Blood Urea Nitrogen 10 mg/dL (8-23); Calcium 9.5 mg/dL (8.5-10.5); Carbon Dioxide 28 mmol/L (22-29); Chloride 100 mmol/L (98-107); Globulin 3.6 g/dL (1.3-4.6); Glucose 121 mg/dL (65-115); Osmolality Calculated 284 mOsm/kg (285-295); Potassium 4.6 mmol/L (3.5-5.1); Sodium 137 mmol/L (136-145); Total Bilirubin 1.3 mg/dL (0.15-1.2)
[2023-07-13] MEDS: iohexol 350 mg/mL 500 mL Btl (per mL) IV (11:40)
[2023-07-13 12:10] VITALS: BP 128/67; PULSE 79; RESP 16; O2SAT 98
[2023-07-13 13:00] VITALS: BP 117/64; PULSE 81; RESP 17; O2SAT 97
[2023-07-13 13:26] VITALS: BP 126/77; PULSE 78; RESP 16; O2SAT 98
[2023-07-13] MEDS: cefTRIAXone 1,000 MG in sodium chloride 0.9% (plus) 50 ML 100 MG IV (14:13)
== END 2023-07-13 15:03 | disposition home or self-care (01) ==
PROVIDERS: Emergency Provider Internal Medicine; PCP Family Medicine
DX: N39.0 Urinary tract infection, site not specified (principal); R31.9 Hematuria, unspecified; Z79.82 Long term (current) use of aspirin; K80.20 Calculus of gallbladder without cholecystitis without obstruction; K44.9 Diaphragmatic hernia without obstruction or gangrene; Z87.891 Personal history of nicotine dependence; I10 Essential (primary) hypertension; E78.5 Hyperlipidemia, unspecified
CPT/HCPCS: 36415; 74177; 80053; 81001; 83735; 85025; 85610; 85730; 87077; 87086; 87186; 96374; 99285; J0696; Q9967

== ENCOUNTER 2023-07-29 07:37 | Outpatient (CLI) | payer MEDICARE, SELFPAY ==
--- NOTE | 2023-07-29 07:45 | US_ITS ---
WS: [id number] US transvaginal [id number] HISTORY: endometrial thickening on ct COMPARISON: CT 07/13/2023 Uterus: 6.7 cm x 3.6 cm x 2.6 cm. Small size anteverted uterus. No fibroid or mass identified. Endometrium: 0.6 cm. Endometrium is top normal size. Very slight heterogeneity along the endometrial canal. No discrete mass is identified. There is a tiny amount of fluid in the endometrial canal. Right ovary: 2.5 cm x 2.4 cm x 1.6 cm. Normal size ovary for age. No mass. Left ovary: Not identified. No free fluid in the cul-de-sac. IMPRESSION: 1. Endometrium is measuring top normal size with a tiny amount of central fluid. No mass identified. If patient is having vaginal bleeding consider CHIEF MECHANICAL ENGINEER evaluation. Otherwise short-term follow-up in 3 to 4 months by transvaginal pelvic ultrasound would be helpful. 2. LEFT ovary is not identified.
== END 2023-07-29 07:38 | disposition home or self-care (01) ==
LOC: RAD 07:38
PROVIDERS: PCP Family Medicine; Visit Provider Family Medicine
DX: R93.89 Abnormal findings on diagnostic imaging of other specified body structures (principal)
CPT/HCPCS: 76830

== ENCOUNTER → 2023-08-26 09:52 | Outpatient (BNVA) | payer MEDICARE, SELFPAY | PROVIDERS: PCP Family Medicine; Visit Provider Internal Medicine Cardiovascular Disease | DX: I25.10 Atherosclerotic heart disease of native coronary artery without angina pectoris (principal); I48.91 Unspecified atrial fibrillation; I49.3 Ventricular premature depolarization; M16.11 Unilateral primary osteoarthritis, right hip; Z87.891 Personal history of nicotine dependence; R94.31 Abnormal electrocardiogram [ECG] [EKG] | CPT/HCPCS: 93005; 99214 ==

== ENCOUNTER → 2023-11-29 13:22 | Outpatient (BNVA) | payer MEDICARE, SELFPAY | PROVIDERS: PCP Family Medicine; Visit Provider Obstetrics & Gynecology | DX: R93.89 Abnormal findings on diagnostic imaging of other specified body structures (principal) | CPT/HCPCS: 76830 ==

== ENCOUNTER → 2024-01-05 10:30 | Outpatient (BNVA) | payer MEDICARE, SELFPAY | PROVIDERS: PCP Family Medicine; Visit Provider Family Medicine | DX: Z01.818 Encounter for other preprocedural examination (principal) | CPT/HCPCS: 80053; 81000; 85025; 93005 ==

== ENCOUNTER 2024-01-12 09:37 | Day surgery (SDC) | payer MEDICARE, SELFPAY ==
[2024-01-12] VITALS (10 sets, daily range): BP systolic 126–173; BP diastolic 77–115; PULSE 70–99; RESP 15–20; TEMP 36.2–36.7; O2SAT 93–96; BMI 34.6
--- NOTE | 2024-01-12 10:00 | P.ANESASSM_ITS ---
Pre-Anesthetic Assessment Height/Weight: Height 1.65 m Weight 94.347 kg O2 Del Method Room Air 01/12/24 09:56 Operation Date: 01/12/24 11:20 Proposed Procedures p Hysteroscopy Hysteroscopy w/ Endometrial Sampling/ possible endometrial polypectomy(Not Applicable) - Zac Quigley MD Familial anesthetic complications: None Was Beta Yenifer taken within 24 hours: N/A Was Clonidine taken within 24 hours: N/A Last intake: Intake Last Liquid Date 01/11/24 Last Liquid Time 00:00 Last Solid Date 01/11/24 Last Solid Time 22:00 Social No alcohol and No tobacco Exam alert, oriented x 3, clear to auscultation bilaterally and regular rate & rhythm Airway Mallampati: Class II Dentition: false CV/HEM Hypertension and Palpitations cath results Conclusions 1. Moderate left circumflex artery stenosis. 2. IFR was nonischemic.. Recommendations * Aggressive risk factor modification. * Outpatient cardiology follow-up in 4 weeks. GI Gastroesophageal Reflux Disease Anesthetic Plan ASA status: 2 Anesthesia: General Risk of > 500 ml blood loss (7ml/kg in children): No Medications/Allergies Home Medications Medication Instructions Recorded Confirmed Last Taken Type aspirin 81 mg tablet,delayed 81 mg PO BEDTIME 10/31/19 01/11/24 01/05/24 History release isosorbide mononitrate 30 mg 15 mg (1/2 x 30 mg) PO QAM 90 days 10/24/23 01/11/24 01/11/24 Rx tablet,extended release 24 hr #45 tabs atorvastatin 10 mg tablet 10 mg PO QAM #90 tabs 11/22/23 01/11/24 01/11/24 Rx pantoprazole 40 mg tablet,delayed 40 mg PO QAM #90 tabs 11/22/23 01/11/24 01/11/24 Rx release propranolol 40 mg tablet 40 mg PO QPM #90 tabs 11/22/23 01/11/24 01/10/24 Rx sertraline 50 mg tablet 50 mg PO QAM #90 tabs 11/22/23 01/11/24 01/11/24 Rx propranolol 80 mg capsule,24 80 mg PO DAILY 01/11/24 01/11/24 01/11/24 History hr,extended release Allergies Allergy/AdvReac Type Severity Reaction Status Date / Time No Known Allergies Allergy Verified 01/11/24 09:55 [facility] Anesthesia Medical History CAD (coronary artery disease) Gastritis Ischemia Dyslipidemia Arrhythmia Benign essential HTN Anxiety Surgical History History of colonoscopy 2008 History of tonsillectomy H/O tubal ligation Family History Mother Cardiomegaly Grandfather Myocardial infarction Family/Other Myocardial infarction Diabetes Other CAD (coronary artery disease) Hypertension Social History Smoking and tobacco/nicotine status: former use of tobacco/nicotine Alcohol intake: never Data Anesthesia Cardiac Studies: Sestamibi Stress Test (Cardiology) 12/23
--- NOTE | 2024-01-12 10:24 | W.PM.OPSFHP ---
Same Day Surgery H&P Indication for Procedure/HPI DATE OF PROCEDURE: January 12, 2024 CHIEF COMPLAINT/INDICATIONFOR SURGICAL PROCEDURE: abnormal endometrium on ultrasound PREOP DIAGNOSIS: abnormal endometrium on ultrasound PLANNED PROCEDURE: Operation Date: 01/12/24 11:20 Proposed Procedures p Hysteroscopy Hysteroscopy w/ Endometrial Sampling/ possible endometrial polypectomy(Not Applicable) - Zac Quigley MD 68 y.o. no bleeding / spotting has heterogeneous, thickened, and cystic endometrium on ultrasound now scheduled for hysteroscopy, endometrial sampling, possible endometrial polypectomy Medications/Allergies* Home Medications Medication Instructions Recorded Confirmed Type aspirin 81 mg tablet,delayed 81 mg PO BEDTIME 10/31/19 01/11/24 History release propranolol 80 mg capsule,24 80 mg PO DAILY 01/11/24 01/12/24 History hr,extended release Allergies/Adverse Reactions Allergy/AdvReac Type Severity Reaction Status Date / Time No Known Allergies Allergy Verified 01/11/24 09:55 Pertinent History/Comorbid Conditions* Medical History (Updated 01/05/24 @ 10:21 by Lorena Giron DO) CAD (coronary artery disease) Gastritis Ischemia Dyslipidemia Arrhythmia Benign essential HTN Anxiety Surgical History (Updated 04/07/22 @ 16:46 by Joseph Ross DO) History of colonoscopy 2008 History of tonsillectomy H/O tubal ligation Family History (Updated 02/24/22 @ 10:04 by Jen Ferrer RN) Diabetes Family/Other CAD (coronary artery disease) Cardiomegaly Mother Myocardial infarction Grandfather Family/Other Hypertension Social History Smoking and tobacco/nicotine status: former use of tobacco/nicotine Alcohol intake: never Pertinent Exam Findings alert, oriented x 3, clear to auscultation bilaterally and regular rate & rhythm Recommendations Surgery/Procedure today Coding Level of Care Code Acute Code for Chg Fwd Time Spent (min) 20
[2024-01-12] MEDS: sodium chloride 0.9% 1,000 ML 30 ML IV (10:30)
--- NOTE | 2024-01-12 10:30 | W.PM.OPSUD ---
Surgery/Procedure H&P Update DATE OF PROCEDURE: January 12, 2024 DATE H&P PERFORMED: 01/11/24 H&P UPDATE INFORMATION: I have reviewed H&P completed within last 30 days, I have examined patient prior to procedure and No changes to prior documentation PREOP DIAGNOSIS: abnormal endometrium on ultrasound PLANNED PROCEDURE: Operation Date: 01/12/24 11:20 Proposed Procedures p Hysteroscopy Hysteroscopy w/ Endometrial Sampling/ possible endometrial polypectomy(Not Applicable) - Zac Quigley MD
--- NOTE | 2024-01-12 11:45 | PM.OP ---
Operative Report Date of procedure: January 12, 2024 Pre-op diagnosis: abnormal endometrium on ultrasound Post-op diagnosis: presence of endometrium septum 1 cm endometrial polyp Post-op findings: Cervix stenotic Uterus sounded to 8 cm Presence of an endometrial tissue septum two cavities One cavity with 1 cm smooth-contoured polyp Minimal endometrial tissue aside from the septum Intact endometrial cavity following use of Myosure Procedure done: Hysteroscopy Endometrial sampling and polypectomy with Myosure Removal of endometrial septum with Myosure Implants: none Specimens removed/disposition: endometrial tissue, sent to pathology Surgeon: Zac Quigley MD Anesthesia: General Estimated blood loss (mL): 0 Complications: none Brief History: 68 y.o. with pelvic sono showing enlarged, inhomogeneous endometrium with cystic regions Procedure: Informed consent signed. Patient was taken to the operating room. Anesthesia was induced. Patient was placed in dorsolithotomy position, prepped and draped for hysteroscopy. A bivalve speculum was placed in the vagina. The anterior lip of the cervix was grasped with a sharp-toothed tenaculum. The cervix noted to be stenotic, was serially dilated with Hegar dilators. . A hysteroscope was placed into the endometrial cavity. The endometrial cavity was seen to be by a tissue septum. One of the cavities showed a 1 cm smooth-contoured polyp. A Myosure was then inserted and septum and polyp were removed, leaving an intact endometrial cavity. The hysteroscope and Myosure were then removed. Endometrial tissue was sent to pathology. The sharp-toothed tenaculum was removed. There was no bleeding from the endometrial cavity or cervix. The patient was then placed supine and awakened and taken to the PACU. Postop condition: stable EBL: none Sponge and instruments counts were normal x 2 Complications: none
--- NOTE | 2024-01-12 12:55 | ANE.PACU2 ---
Inpatient post-anesthesia follow up: Airway intact: Yes Vital signs: Temperature 98.0 F Pulse Rate 70 Respiratory Rate 18 Blood Pressure 150/95 Pulse Oximetry 94 Oxygen Delivery Me thod Room Air Oxygen Flow Rate Fraction of Inspir ed Oxygen Hydration adequate: Yes Nausea and vomiting: No Pain level: 1 Mental status: Baseline
== END 2024-01-12 12:58 | disposition home or self-care (01) ==
PROVIDERS: PCP Family Medicine; Visit Provider Obstetrics & Gynecology
PROC: 0UJD8ZZ Inspection of Uterus and Cervix, Via Natural or Artificial Opening Endoscopic (ICD-10-PCS; CPT 58555; principal; 2024-01-12 11:10)
DX: N84.0 Polyp of corpus uteri (principal); I10 Essential (primary) hypertension; K21.9 Gastro-esophageal reflux disease without esophagitis; Z79.82 Long term (current) use of aspirin; I25.10 Atherosclerotic heart disease of native coronary artery without angina pectoris; E78.5 Hyperlipidemia, unspecified; Z87.891 Personal history of nicotine dependence
CPT/HCPCS: 58558; 88305; J1100; J2371; J2405; J2704; J3010; J3490; J7030

== ENCOUNTER → 2024-05-15 08:31 | Outpatient (BNVA) | payer MEDICARE, SELFPAY | PROVIDERS: PCP Family Medicine | DX: E78.5 Hyperlipidemia, unspecified (principal) | CPT/HCPCS: 80053; 80061 ==

== ENCOUNTER 2024-05-22 08:54 | Outpatient (CLI) | payer MEDICARE, SELFPAY ==
--- NOTE | 2024-05-22 09:00 | MM_ITS ---
WS: [id number] BILATERAL SCREENING DIGITAL TOMOSYNTHESIS MAMMOGRAM WITH CAD HISTORY: screening COMPARISON: 02/02/2023, 06/20/2020 Bilateral CC and MLO views with tomosynthesis and synthetic mammography submitted. Computer aided det ection analyzed. Breast composition: There are scattered areas of fibroglandular density. No suspicious masses, microc alcifications or architectural distortion. Benign calcifications RIGHT breast. No suspicious mass. MM/[place] [id number] IMPRESSION: BI-RADS: 2-Benign FOLLOW UP: 1 Year Follow-up
== END 2024-05-22 08:55 | disposition home or self-care (01) ==
LOC: RAD 08:54
DX: Z12.31 Encounter for screening mammogram for malignant neoplasm of breast (principal); R92.323 Mammographic fibroglandular density, bilateral breasts; R92.1 Mammographic calcification found on diagnostic imaging of breast
CPT/HCPCS: 77063; 77067

== ENCOUNTER → 2024-09-10 11:03 | Outpatient (BNVA) | payer MEDICARE, SELFPAY | PROVIDERS: Visit Provider Internal Medicine | DX: I25.10 Atherosclerotic heart disease of native coronary artery without angina pectoris (principal); I10 Essential (primary) hypertension; E78.5 Hyperlipidemia, unspecified; I49.3 Ventricular premature depolarization; M16.11 Unilateral primary osteoarthritis, right hip; Z87.891 Personal history of nicotine dependence | CPT/HCPCS: 99214 ==

== ENCOUNTER → 2024-11-13 08:43 | Outpatient (BNVA) | payer MEDICARE, SELFPAY | DX: I10 Essential (primary) hypertension (principal); E78.5 Hyperlipidemia, unspecified | CPT/HCPCS: 80053; 80061; 85025 ==

== ENCOUNTER 2025-01-09 13:43 | Outpatient (RCR) | payer MEDICARE, SELFPAY | END 2025-02-06 23:59 | disposition home or self-care (01) | LOC: SPT 13:43 | PROVIDERS: PCP Family Medicine; Visit Provider Family Medicine | DX: M54.50 Low back pain, unspecified (principal) | CPT/HCPCS: 97110; 97161 ==

== ENCOUNTER 2025-02-07 06:30 | Outpatient (RCR) | payer MEDICARE, SELFPAY | END 2025-02-18 08:28 | disposition home or self-care (01) | LOC: SPT 06:30 | PROVIDERS: PCP Family Medicine; Visit Provider Family Medicine | DX: M54.50 Low back pain, unspecified (principal) | CPT/HCPCS: 97110 ==

== ENCOUNTER → 2025-05-13 08:06 | Outpatient (BNVA) | payer MEDICARE, SELFPAY | PROVIDERS: PCP Family Medicine; Visit Provider Obstetrics & Gynecology | DX: R93.89 Abnormal findings on diagnostic imaging of other specified body structures (principal); N88.8 Other specified noninflammatory disorders of cervix uteri | CPT/HCPCS: 76830 ==

== ENCOUNTER → 2025-09-09 13:06 | Outpatient (BNVA) | payer MEDICARE, SELFPAY | PROVIDERS: Visit Provider Internal Medicine | DX: I10 Essential (primary) hypertension (principal); Z87.891 Personal history of nicotine dependence | CPT/HCPCS: 99213 ==